=== PATIENT | male | born 1955 | race Caucasian/White ===

== ENCOUNTER 2020-01-08 15:03 | Emergency (ER) | payer MEDICAID ==
[~2020-01-08] VITALS: Ht 188 cm; Wt 95.3 kg
[2020-01-08 15:08] VITALS: BP 151/89
--- NOTE | 2020-01-08 15:15 | NUR ---
W/C ASSISTED TO BED 05
--- NOTE | 2020-01-08 15:23 | NUR ---
XRAY AT BEDSIDE.
--- NOTE | 2020-01-08 15:28 | NUR ---
DENIES FALLS/TRAUMA. 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 PT AWAKE , ALERT , AFIBRILE , ABLE TO STAND ON RT LEG WITH PAIN 10/10 UPON WALKING , NO TENDERNESS NOR REDNESS NOTED. HX- DENIES
--- NOTE | 2020-01-08 15:43 | NUR ---
DR JAMISON AT BEDSIDE EVALUATING PT.
[2020-01-08] MEDS ORDERED: KETOROLAC 30 MG/ML VIAL IM ONE (15:55)
[2020-01-08 16:11] VITALS: BP 151/89
--- NOTE | 2020-01-08 16:13 | NUR ---
Patient discharged with v/s stable. Written and verbal after care instructions given and explained regarding degenerative disease. Patient alert, oriented and verbalized understanding of instructions. Ambulatory with steady gait. All questions addressed prior to discharge. ID band removed. Patient advised to follow up with PMD. Rx of naproxyn given. Patient educated on indication of medication including possible reaction and side effects. Opportunity to ask questions provided and answered.
== END 2020-01-08 16:13 | disposition home or self-care (01) ==
LOC: MED 15:03
DX: G89.29 Other chronic pain (principal); M25.561 Pain in right knee; M19.90 Unspecified osteoarthritis, unspecified site
CPT/HCPCS: 73562; 96372; 99283; J1885; Q0092